=== PATIENT | male | born 1985 | race Caucasian/White ===

== ENCOUNTER 2018-04-23 08:51 | Observation (INO) ==
[2018-04-23] MEDS ORDERED: Sod Chloride 0.9% Inj 1,000 ML IV.SIG SCH (09:30)
--- NOTE | 2018-04-23 09:33 | ED ---
HPI General Chief Complaint: Altered Mental Status Stated Complaint: AMS Time Seen by Provider: 04/23/18 09:19 Source: patient, family and EMS Mode of arrival: EMS Limitations: altered mental status History of Present Illness HPI narrative: 33-year-old male was brought in by EMS after patient was found with altered mental status morning. Patient's family found patient confused and severe lethargy this morning. Patient was talking without making any sense. Patient was asking for help. EMS was called. Patient's blood sugar was found to be 46. Patient was given D10 IV. Patient was transported to ED for evaluation. Upon arrival patient is with mild lethargy however answer questions appropriately. Patient complained of mild headache. Patient complaint left-sided chest pain. Patient complains of nausea. Patient denies any palpitation. Patient denies history CAD. Patient states that he drank small amounts of alcohol recently. Patient denies any drug abuse. Patient has history hypertension and tachycardia. Patient on propanolol for that. Patient denies history of diabetes. Patient has history of hyperlipidemia. Patient is a non-smoker. Patient denies family history of heart disease. Patient also has history of depression. complaint: Reports altered mental status, confusion and decreased responsiveness Onset (ago): hour(s) Timing confirmed by: family member Severity: severe Consistency of symptoms: constant Context: Reports unknown Associated symptoms: Reports chest pain, headaches, malaise and nausea/vomiting Treatments prior to arrival: Reports glucose Related Data Home Medications Medication Instructions Recorded Confirmed pantoprazole 40 mg PO DAILY 04/23/18 04/23/18 propranolol 60 mg PO BID 04/23/18 04/23/18 sertraline 50 mg PO DAILY 04/23/18 04/23/18 Allergies Allergy/AdvReac Type Severity Reaction Status Date / Time No Known Allergies Allergy Verified 04/23/18 08:59 Review of Systems ROS: all other systems reviewed are negative [facility] Medical History Medical History ACL tear (Acute) Anxiety (Acute) HTN (hypertension) (Acute) Tachycardia (Acute) Surgical History Surgical History H/O hand surgery (Acute) Social History Social History Substance History: No History of Abuse Second Hand Smoke Exposure: No Smoking Status: Never smoker How Often Do You Have a Drink Containing Alcohol: 4 or more times a week Recent Travel in [facility] within the Last 8 Weeks: Yes Recent Out of Country Travel within the Last 8 Weeks: No Immunization History Tetanus Immunization: Unsure Exam Narrative Exam Narrative: GENERAL: Well-nourished, well-developed patient. SKIN: Focused skin assessment warm/dry. HEAD: Normocephalic. EYES: No scleral icterus. No injection or drainage. NECK: Supple, trachea midline. No JVD or lymphadenopathy. CARDIOVASCULAR: Regular rate and rhythm without murmurs, gallops, or rubs. RESPIRATORY: Breath sounds equal bilaterally. No accessory muscle use. GASTROINTESTINAL: Abdomen soft, non-tender, nondistended. MUSCULOSKELETAL: No cyanosis, or edema. BACK: Nontender without obvious deformity. No CVA tenderness. Neurologic exam: Patient is a lethargic. Patient oriented to place and person. Patient answer questions appropriately. Patient moves all extremities well. No obvious focal neurological deficit. Course Initial Documented Vital Signs Temperature 93.1 F L 04/23/18 09:01 Pulse Rate 50 L 04/23/18 09:01 Respiratory Rate 13 04/23/18 09:01 Blood Pressure 133/88 04/23/18 09:01 Pulse Oximetry 100 04/23/18 09:01 Last Documented Vital Signs Temperature 97.6 F 04/23/18 11:18 Pulse Rate 79 04/23/18 17:03 Respiratory Rate 17 04/23/18 17:03 Blood Pressure 117/89 04/23/18 17:03 Pulse Oximetry 100 04/23/18 17:03 Medical Decision Making [facility] Narrative Medical decision making narrative: 33-year-old male was found with altered mental status and confused this morning. Blood sugar was 46. Patient was given D10 and transported to ED by EMS. Patient's mental status improves in the ED. Patient complained of left-sided chest pain now. Normal saline solution 1 L IV bolus. Medical Screen Exam Complete: Yes Emergency Medical Condition: Yes Differential Diagnosis Differential Diagnosis: Differential diagnosis including hypoglycemia, chest wall pain, angina, NM, PE, pneumothorax, TIA, CVA. Lab Data Lab results reviewed: Yes I reviewed the patient's lab results. Result diagrams: 04/23/18 09:25 04/23/18 09:25 Lab Results 0204/23/18 04/23/18 Range/Units 09:25 09:25 09:25 WBC 5.1 (4.0-11.0) th/mm3 RBC 4.15 L (4.50-5.90) mil/mm3 Hgb 14.0 (13.0-17.0) gm/dL Hct 41.0 (39.0-51.0) % MCV 98.8 (80.0-100.0) fL MCH 33.8 (27.0-34.0) pg MCHC 34.2 (32.0-36.0) % RDW 13.7 (11.6-17.2) % Plt Count 208 (150-450) th/mm3 MPV 7.9 (7.0-11.0) fL Neut % (Auto) 73.7 H (16.0-70.0) % Lymph % (Auto) 16.6 (9.0-44.0) % [place] % (Auto) 6.0 (0.0-8.0) % Eos % (Auto) 1.4 (0.0-4.0) % Baso % (Auto) 2.3 H (0.0-2.0) % Neut # (Auto) 3.7 (1.8-7.7) th/mm3 Lymph # (Auto) 0.8 L (1.0-4.8) th/mm3 [place] # (Auto) 0.3 (0.0-0.9) th/mm3 Eos # (Auto) 0.1 (0.0-0.4) th/mm3 Baso # (Auto) 0.1 (0.0-0.2) th/mm3 WBC Differential . Differential Comment Auto diff final PT 10.5 (9.8-11.6) sec INR 1.0 Ratio APTT 26.1 (23.4-31.7) sec Sodium 132 L (136-145) meq/L Potassium 3.5 (3.5-5.1) meq/L Chloride 96 L (98-107) meq/L Carbon Dioxide 17.0 L (21.0-32.0) meq/L Anion Gap 19 H (5-15) meq/L BUN 9 (7-18) mg/dL Creatinine 1.02 (0.60-1.30) mg/dL Estimated GFR 85 L (>89) mL/min Random Glucose 178 H (74-106) mg/dL Lactic Acid (0.4-2.0) mmol/L Calcium 8.3 L (8.5-10.1) mg/dL Total Bilirubin 1.4 H (0.2-1.0) mg/dL AST 627 H (15-37) U/L ALT 144 H (12-78) U/L Alkaline Phosphatase 122 H (45-117) U/L Total Creatine Kinase 202 (39-308) U/L Troponin I Less than 0.02 L (0.02-0.05) ng/mL Total Protein 8.3 H (6.4-8.2) g/dL Albumin 4.3 (3.4-5.0) g/dL TSH 1.390 (0.358-3.740) uIU/mL Urine Color (Yellw/Straw) Urine Clarity (Clear) Urine pH (5.0-8.5) Ur Specific [place] (1.002-1.035) Urine Protein (Neg-Trace) mg/dL Urine Glucose (UA) (Negative) mg/dL Urine Ketones (Negative) mg/dL Urine Occult Blood (Negative) Urine Nitrate (Negative) Urine Bilirubin (Negative) Urine Urobilinogen (Less than 2) mg/dL Ur Leukocyte Esterase (Negative) Urine RBC (0-3) /hpf Hyaline Casts (0-3) /lpf Urine Mucus (Occasional) /lpf Micro UA Comment Ur Microscopic Review Urine Culture Comments Urine Opiates Screen (Neg) Ur Barbiturates Screen (Neg) Ur Amphetamines Screen (Neg) U Benzodiazepines Scrn (Neg) Urine Cocaine Screen (Neg) U Cannabinoids Screen (Neg) 04/23/18 04/23/18 04/23/18 Range/Units 10:22 11:02 11:02 WBC (4.0-11.0) th/mm3 RBC (4.50-5.90) mil/mm3 Hgb (13.0-17.0) gm/dL Hct (39.0-51.0) % MCV (80.0-100.0) fL MCH (27.0-34.0) pg MCHC (32.0-36.0) % RDW (11.6-17.2) % Plt Count (150-450) th/mm3 MPV (7.0-11.0) fL Neut % (Auto) (16.0-70.0) % Lymph % (Auto) (9.0-44.0) % [place] % (Auto) (0.0-8.0) % Eos % (Auto) (0.0-4.0) % Baso % (Auto) (0.0-2.0) % Neut # (Auto) (1.8-7.7) th/mm3 Lymph # (Auto) (1.0-4.8) th/mm3 [place] # (Auto) (0.0-0.9) th/mm3 Eos # (Auto) (0.0-0.4) th/mm3 Baso # (Auto) (0.0-0.2) th/mm3 WBC Differential Differential Comment PT (9.8-11.6) sec INR Ratio APTT (23.4-31.7) sec Sodium (136-145) meq/L Potassium (3.5-5.1) meq/L Chloride (98-107) meq/L Carbon Dioxide (21.0-32.0) meq/L Anion Gap (5-15) meq/L BUN (7-18) mg/dL Creatinine (0.60-1.30) mg/dL Estimated GFR (>89) mL/min Random Glucose (74-106) mg/dL Lactic Acid 4.2 H* (0.4-2.0) mmol/L Calcium (8.5-10.1) mg/dL Total Bilirubin (0.2-1.0) mg/dL AST (15-37) U/L ALT (12-78) U/L Alkaline Phosphatase (45-117) U/L Total Creatine Kinase (39-308) U/L Troponin I (0.02-0.05) ng/mL Total Protein (6.4-8.2) g/dL Albumin (3.4-5.0) g/dL TSH (0.358-3.740) uIU/mL Urine Color Straw (Yellw/Straw) Urine Clarity Clear (Clear) Urine pH 6.0 (5.0-8.5) Ur Specific [place] 1.006 (1.002-1.035) Urine Protein Negative (Neg-Trace) mg/dL Urine Glucose (UA) 150 H (Negative) mg/dL Urine Ketones 20 (Negative) mg/dL Urine Occult Blood Negative (Negative) Urine Nitrate Negative (Negative) Urine Bilirubin Negative (Negative) Urine Urobilinogen Less than 2 (Less than 2) mg/dL Ur Leukocyte Esterase Negative (Negative) Urine RBC Less than 1 (0-3) /hpf Hyaline Casts 3 (0-3) /lpf Urine Mucus Few H (Occasional) /lpf Micro UA Comment Culture not ind Ur Microscopic Review Not Reportable Urine Culture Comments Culture not ind Urine Opiates Screen Neg (Neg) Ur Barbiturates Screen Neg (Neg) Ur Amphetamines Screen Neg (Neg) U Benzodiazepines Scrn Neg (Neg) Urine Cocaine Screen Neg (Neg) U Cannabinoids Screen Neg (Neg) Imaging Data Attestation: I personally reviewed and interpreted this imaging study as follows : Radiologist's impression: Chest X-Ray 04/23/18 09:20 CONCLUSION: No acute cardiopulmonary disease Head CT 04/23/18 09:20 CONCLUSION: 1. No acute intracranial abnormality . . Discharge Plan Discharge Disposition Patient Disposition: ED Admit(ED Internal Use Only) Discharge Order Discharge Orders: ED Use Only Admit Order (Routine); Ordered 04/23/18 Ordered By: Diomedes De Souza Discharge Details Diagnosis: Hypoglycemia, Left-sided chest pain, Hypothermia Physicians Team ED Provider: Diomedes De Souza Primary Care Provider: Primary Care Lindsey Motta Attending Provider: Renard Paris Discharge Interventions Interventions: Vital Signs Last Done: 04/23/18 13:17 ED Discharge Assessment Last Done: 04/23/18 17:09 Status ED Status: Admitted Observation Patient
--- NOTE | 2018-04-23 09:40 | XR ---
EXAM DATE: 04/23/2018 9:34 AM EST AGE/SEX: 33 years / Male INDICATIONS: Chest pain. CLINICAL DATA: This is the patient's initial encounter. Patient reports that signs and symptoms have been present for 1 day and indicates a pain score of 6/10. MEDICAL/SURGICAL HISTORY: None. None. COMPARISON: No prior exams available for comparison. FINDINGS: A single AP view of the chest demonstrates the lungs to be symmetrically aerated without evidence of mass, infiltrate or effusion. The cardiomediastinal contours are unremarkable. Osseous structures a re intact. CONCLUSION: No acute cardiopulmonary disease Electronically signed by: Jonathon Steiner MD Board Certified Radiologist 04/23/2018 9:38 AM EST
[2018-04-23 09:47] LABS: Baso # (Auto) 0.1 th/mm3 (0.0-0.2); Baso % (Auto) 2.3 % (0.0-2.0); Eos # (Auto) 0.1 th/mm3 (0.0-0.4); Eos % (Auto) 1.4 % (0.0-4.0); Lymph # (Auto) 0.8 th/mm3 (1.0-4.8); Lymph % (Auto) 16.6 % (9.0-44.0); Mean Corpuscular HGB Conc 34.2 % (32.0-36.0); Mean Corpuscular Hemoglobin 33.8 pg (27.0-34.0); Mean Corpuscular Volume 98.8 fL (80.0-100.0); Mean Platelet Volume 7.9 fL (7.0-11.0); Mono # (Auto) 0.3 th/mm3 (0.0-0.9); Neut # (Auto) 3.7 th/mm3 (1.8-7.7); Neut % (Auto) 73.7 % (16.0-70.0); Platelet Count 208 th/mm3 (150-450); Red Blood Count 4.15 mil/mm3 (4.50-5.90); Red Cell Distribution Width 13.7 % (11.6-17.2); White Blood Count 5.1 th/mm3 (4.0-11.0)
[2018-04-23 09:53] LABS: Activated Partial Thrombo Time 26.1 sec (23.4-31.7); Prothrombin Time 10.5 sec (9.8-11.6)
[2018-04-23 10:06] LABS: Albumin 4.3 g/dL (3.4-5.0); Anion Gap 19 meq/L (5-15); Aspartate Aminotransferase 627 U/L (15-37); Blood Urea Nitrogen 9 mg/dL (7-18); Calcium 8.3 mg/dL (8.5-10.1); Chloride 96 meq/L (98-107); Glomerular Filtration Rate 85 mL/min (>89); Glucose,Random 178 mg/dL (74-106); Potassium 3.5 meq/L (3.5-5.1); Sodium 132 meq/L (136-145)
[2018-04-23 10:07] LABS: Alanine Aminotransferase 144 U/L (12-78)
[2018-04-23 10:16] LABS: Alkaline Phosphatase 122 U/L (45-117); Creatine Kinase 202 U/L (39-308); Total Protein 8.3 g/dL (6.4-8.2)
--- NOTE | 2018-04-23 10:23 | CT ---
EXAM DATE: 04/23/2018 10:20 AM EST AGE/SEX: 33 years / Male INDICATIONS: Altered Mental Status CLINICAL DATA: This is the patient's initial encounter. Patient reports that signs and symptoms have been present for 1 day and indicates a pain score of 0/10. MEDICAL/SURGICAL HISTORY: Diabetes. Hypertension. None. RADIATION DOSE: 66.34 CTDI (mGy) COMPARISON: No prior exams available for comparison. TECHNIQUE: CT of the head without contrast. Using automated exposure control and adjustment of the mA and/or kV according to patient size, radiation dose was kept as low as reasonably achievable to ob tain optimal diagnostic quality images. DICOM format image data is available electronically for revi ew and comparison. FINDINGS: Cerebrum: The ventricles are normal for age. No evidence of midline shift, mass lesion, hemorrhage or acute infarction. No extraaxial fluid collections are seen. Posterior Fossa: The cerebellum and brainstem are intact. The 4th ventricle is midline. The cerebe llopontine angle is unremarkable. Extracranial: The visualized portion of the orbits is intact. Skull: The calvaria is intact. No evidence of skull fracture. CONCLUSION: 1. No acute intracranial abnormality . . Electronically signed by: Jonathon Steiner MD Board Certified Radiologist 04/23/2018 10:21 AM EST
[2018-04-23 11:16] LABS: Bilirubin,Urine Negative (Negative); Clarity,Urine Clear (Clear); Color,Urine Straw (Yellw/Straw); Glucose,Urine (UA) 150 mg/dL (Negative); Hyaline Casts,Urine 3 /lpf (0-3); Leukocyte Esterase,Urine Negative (Negative); Mucus,Urine Few /lpf (Occasional); Nitrite,Urine Negative (Negative); Specific Gravity,Urine 1.006 (1.002-1.035)
[2018-04-23 11:20] LABS: Amphetamine Screen,Urine Neg (Neg); Barbiturate Screen,Urine Neg (Neg); Cannabinoid Screen,Urine Neg (Neg); Cocaine Screen,Urine Neg (Neg)
[2018-04-23] MEDS ORDERED: Dextrose 5%/NaCl 0.45% Inj 1,000 ML IV.CONT SCH (11:30)
[2018-04-23 11:33] LABS: Opiate Screen,Urine Neg (Neg)
--- NOTE | 2018-04-23 15:43 | P.HPFP ---
History of Present Illness Primary Care Physician: No Primary Care Physician <AnsonkeonRenard K - 04/23/18 19:47> No Primary Care Physician <Aguila Darleen Villar Lexie - 04/23/18 15:43> Chief Complaint: AMS secondary to hypoglycemia, left-sided CP <Darleen Roberto - 04/23/18 19:13> History of Present Illness: 33-year-old male with history of tachycardia for which he takes propranolol, presented to the ED via EMS for altered mental status due to hypoglycemia down to the 40s. Patient was given D50 in route to the ED. Patient was found to be hypothermic and bradycardic on arrival to the ED with a lactic acidosis of 4.2. Patient states that this morning after urinating he felt like he was "going to pass out", with significant palpitations, sweating episode and jitteriness. Patient states that he started getting tunnel vision, and that when he called his boss his mom. Per patient she likely showed up within 5 minutes of him losing consciousness and contacted EMS. Patient remembers waking up in the ambulance on his way to the hospital but is otherwise unsure of what occurred. He states the last time he ate last night was around 10 PM. No history of hypoglycemic episodes in the past. No recent change in medications, and takes propranolol as prescribed. Patient complaining of nausea, and admits to vomiting once in the ED, nonbloody emesis and a single episode of watery diarrhea. He notes general malaise and body aches currently. He also complained of dull, aching, nonradiating left- sided chest pain in the ED which has now started to resolve. No recent upper respiratory infections or notable sick contacts. Denies headache, change in vision, nasal congestion, sinus pain, sore throat, abdominal pain, pain in his legs. Patient admits to a history of travel including a cruise to the [facility], and a road trip from [place] to [place] within the last 2 months. He notes that he was diagnosed with elevated LFTs at an outpatient clinic in [place], [place] in the last month or so, for which he underwent a workup including an EGD, colonoscopy and ultrasound of the liver. Patient was noted to have fatty liver disease due to alcoholism and a "bacterial or fungal infection" though he is unable to indicate if this was found in the stomach, small bowel, colon or liver. 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 Past medical history: Tachycardia, for which he takes propranolol. GERD, for which he takes pantoprazole. Depression, for which he takes sertraline. Family history: No history of arrhythmias or sudden cardiac at a young age. History of CAD and high cholesterol in both maternal and paternal sides. Social history: Works at the [employer] Former smoker of approximately 1 pack/week for 3 years. History of using chewing tobacco for approximately 5 years. He now occasionally uses an e- cigarette. EtOH: Drinks 2 to 3 12-16 ounce glasses of hard liquor daily, which he notes is a decrease from prior ingestion of a 6 pack of beer and 3-4 shots of hard liquor daily. Denies substance abuse. <Aguila VillarDarleen B 04/23/18 20:11> - Diagnosis (1) Nausea, vomiting, and diarrhea (2) Elevated LFTs (3) Prolonged Q-T interval on ECG (4) Left-sided chest pain (5) Altered mental status (6) Hypothermia (7) Hypotension (8) History of tachycardia (9) Nutrition, metabolism, and development symptoms (10) DVT prophylaxis <Renard Paris 04/23/18 19:47> (1) Nausea, vomiting, and diarrhea (2) Elevated LFTs (3) Prolonged Q-T interval on ECG (4) Left-sided chest pain (5) Altered mental status (6) Hypothermia (7) Hypotension (8) History of tachycardia (9) Nutrition, metabolism, and development symptoms (10) DVT prophylaxis <Aguila VillarDarleen B 04/23/18 20:11> PMFSH - History History Provided By: Patient <Kristinviolet VillarDarleen B 04/23/18 15:43> - Medical History Medical History: Medical History (Last Reviewed 04/23/18 @ 15:21 by Renard Paris MD) ACL tear Anxiety HTN (hypertension) Tachycardia <Renard Paris 04/23/18 19:56> Medical History (Last Reviewed 04/23/18 @ 15:21 by Renard Paris MD) ACL tear Anxiety HTN (hypertension) Tachycardia <Darleen Roberto 04/23/18 15:43> - Surgical History Surgical History: Surgical History (Last Reviewed 04/23/18 @ 15:21 by Renard Paris MD) H/O hand surgery <Renard Paris 04/23/18 19:56> Surgical History (Last Reviewed 04/23/18 @ 15:21 by Renard Paris MD) H/O hand surgery <Darleen Roberto 04/23/18 15:43> - Tobacco History Second Hand Smoke Exposure: No <Darleen Roberto 04/23/18 15:43> Smoking Status: Never smoker <Darleen Roberto 04/23/18 15:43> - Alcohol History How Often Do You Have a Drink Containing Alcohol: 4 or more times a week < Darleen Roberto 04/23/18 15:43> - Substance Use History Substance History: No History of Abuse <Darleen Roberto 04/23/18 15:43> - Travel History Recent Travel in the [facility] Within the Last 8 Weeks: Yes <Darleen Roberto 15:43> Recent Travel Out of the Country Within the Last 8 Weeks: No <Darleen Roberto 04/23/18 15:43> - Immunization History Tetanus Immunization: Unsure <Darleen Roberto 04/23/18 15:43> Medications and Allergies Allergies Allergy/AdvReac Type Severity Reaction Status Date / Time No Known Allergies Allergy Verified 04/23/18 08:59 <Darleen Roberto 04/23/18 15:43> Home Medications Medication Instructions Recorded Confirmed Type pantoprazole 40 mg PO DAILY 04/23/18 04/23/18 History propranolol 60 mg PO BID 04/23/18 04/23/18 History sertraline 50 mg PO DAILY 04/23/18 04/23/18 History <Darleen Roberto 04/23/18 15:43> Active Medications: Active Medications Dextrose (D50w Vial) 50 ml IV.PUSH UNSCH PRN PRN Reason: PER HYPOGLYCEMIA PROTOCOL Flumazenil (Romazicon Inj) 0.2 mg IV.PUSH Q1M PRN PRN Reason: OVERSEDATION Glucagon (Glucagon Inj) 1 mg OTHER PRN PRN PRN Reason: for Hypoglycemia Protocol Haloperidol Lactate (Haldol Inj) 1 mg IV.PUSH Q15M PRN PRN Reason: for severe agitation Sodium Chloride (Ns Inj) 1,000 mls @ 115 mls/hr IV.CONT .Q8H42M [facility] Last Admin: 04/23/18 18:05 Dose: 115 mls/hr Lorazepam (Ativan) 1 mg PO Q4H PRN PRN Reason: for CIWA 8-10 Lorazepam (Ativan) 2 mg PO Q2H PRN PRN Reason: for CIWA 11-14 Lorazepam (Ativan Inj) 2 mg IV.PUSH Q2H PRN PRN Reason: for CIWA 11-14 Lorazepam (Ativan Inj) 2 mg IV.PUSH Q1H PRN PRN Reason: for CIWA 15-20 Lorazepam (Ativan Inj) 2 mg IV.PUSH Q15M PRN PRN Reason: for CIWA > 20 Lorazepam (Ativan Inj) 1 mg IV.PUSH Q4H PRN PRN Reason: for CIWA 8-10 Pantoprazole Sodium (Protonix) 40 mg PO DAILY [facility] Last Admin: 04/23/18 18:05 Dose: 40 mg Promethazine HCl (Phenergan) 12.5 mg PO Q6H PRN PRN Reason: nausea and vomiting Senna/Docusate Sodium (Jackie-Colace) 1 tab PO BID PRN PRN Reason: CONSTIPATION Sertraline HCl (Zoloft) 50 mg PO DAILY [facility] Sodium Chloride (Ns Flush) 2 ml IV.FLUSH BID [facility] Sodium Chloride (Ns Flush) 2 ml IV.FLUSH PRN PRN PRN Reason: FLUSH AFTER USING IV ACCESS <Renard Paris - 04/23/18 19:47> Active Medications Dextrose/Sodium Chloride (D5w/1/2 Ns Inj) 1,000 mls @ 125 mls/hr IV.CONT .Q8H [facility] Last Admin: 04/23/18 11:24 Dose: 125 mls/hr <Darleen Roberto - 04/23/18 15:43> Exam Vital signs: Vital Signs 04/23/18 09:01 04/23/18 09:39 04/23/18 10:19 Temperature 93.1 F L 94.9 F L 94.6 F L Pulse Rate 50 L Respiratory Rate 13 Blood Pressure 133/88 Pulse Oximetry 100 04/23/18 11:18 04/23/18 13:17 04/23/18 17:03 Temperature 97.6 F Pulse Rate 76 81 79 Respiratory Rate 17 17 17 Blood Pressure 93/54 L 96/58 L 117/89 Pulse Oximetry 99 99 100 04/23/18 17:21 04/23/18 17:23 04/23/18 19:19 Temperature 98.1 F Pulse Rate 82 Respiratory Rate 20 Blood Pressure 141/86 H Pulse Oximetry 99 100 98 04/23/18 19:39 Temperature 97.1 F L Pulse Rate 74 Respiratory Rate 16 Blood Pressure 140/91 H Pulse Oximetry 100 Intake & Output 04/23/18 04/23/18 04/24/18 06:59 18:59 06:59 Intake Total 1700 / 1700 Balance 1700 / 1700 Weight 72.575 kg Intake: IV 1700 / 1700 D5W/1/2 NS Inj 1,000 ML @ 125 700 / 700 mls/hr IV.CONT .Q8H DIXIE Rx#: [id number] NS Inj 1,000 ML @ 1000 mls/hr 1000 / 1000 IV.SIG BOLUS DIXIE Rx#:[id number] Other: # Voids 1 Weight On Admission 72.575 kg <Renard Paris - 04/23/18 19:47> Vital Signs 04/23/18 09:01 04/23/18 09:39 04/23/18 10:19 Temperature 93.1 F L 94.9 F L 94.6 F L Pulse Rate 50 L Respiratory Rate 13 Blood Pressure 133/88 Pulse Oximetry 100 04/23/18 11:18 04/23/18 13:17 Temperature 97.6 F Pulse Rate 76 81 Respiratory Rate 17 17 Blood Pressure 93/54 L 96/58 L Pulse Oximetry 99 99 Intake & Output 04/22/18 04/23/18 04/23/18 18:59 06:59 18:59 Intake Total 1000 / 1000 Balance 1000 / 1000 Weight 72.575 kg Intake: IV 1000 / 1000 NS Inj 1,000 ML @ 1000 mls/hr 1000 / 1000 IV.SIG BOLUS DIXIE Rx#:[id number] <Darleen Roberto - 04/23/18 15:43> Narrative: GENERAL: 33-year-old, well nourished, well developed M laying down in bed. Tired appearing. In no acute distress. SKIN: Warm and dry. HEAD: Atraumatic. Normocephalic. EYES: EMOI. PERRLA. No scleral icterus. No injection or drainage. ENT: No nasal bleeding or discharge. Mucous membranes pink and moist. Airway patent. CARDIOVASCULAR: Bradycardic, with regular rhythm. No murmur. PT and DP pulses 2 + bilaterally. RESPIRATORY: No accessory muscle use. Clear to auscultation with equal breath sounds. No crackles, wheeze, rales or rhonchi. GASTROINTESTINAL: BS in all 4 quadrants. Abdomen soft, non-tender, nondistended. Hepatic and splenic margins not palpable. MUSCULOSKELETAL: Extremities without clubbing, cyanosis, or edema. No obvious deformities. No calf tenderness. No CVA tenderness. NEUROLOGICAL: Awake and alert. No obvious cranial nerve deficits. Motor grossly within normal limits. Five out of 5 muscle strength in the arms and legs. Normal speech. <Darleen Roberto [facility] 04/23/18 20:11> Results - Labs Result diagrams: 04/23/18 09:25 04/23/18 09:25 <[place] [id number] 04/23/18 15:43> Abnormal lab results 04/23/18 04/23/18 04/23/18 Range/Units 09:25 09:25 10:22 RBC 4.15 L (4.50-5.90) mil/mm3 Neut % (Auto) 73.7 H (16.0-70.0) % Baso % (Auto) 2.3 H (0.0-2.0) % Lymph # (Auto) 0.8 L (1.0-4.8) th/mm3 Sodium 132 L (136-145) meq/L Chloride 96 L (98-107) meq/L Carbon Dioxide 17.0 L (21.0-32.0) meq/L Anion Gap 19 H (5-15) meq/L Estimated GFR 85 L (>89) mL/min Random Glucose 178 H (74-106) mg/dL Lactic Acid 4.2 H* (0.4-2.0) mmol/L Calcium 8.3 L (8.5-10.1) mg/dL Total Bilirubin 1.4 H (0.2-1.0) mg/dL AST 627 H (15-37) U/L ALT 144 H (12-78) U/L Alkaline Phosphatase 122 H (45-117) U/L Troponin I Less than 0.02 L (0.02-0.05) ng/mL Total Protein 8.3 H (6.4-8.2) g/dL Urine Glucose (UA) (Negative) mg/dL Urine Mucus (Occasional) /lpf 04/23/18 04/23/18 Range/Units 11:02 16:55 RBC (4.50-5.90) mil/mm3 Neut % (Auto) (16.0-70.0) % Baso % (Auto) (0.0-2.0) % Lymph # (Auto) (1.0-4.8) th/mm3 Sodium (136-145) meq/L Chloride (98-107) meq/L Carbon Dioxide (21.0-32.0) meq/L Anion Gap (5-15) meq/L Estimated GFR (>89) mL/min Random Glucose (74-106) mg/dL Lactic Acid (0.4-2.0) mmol/L Calcium (8.5-10.1) mg/dL Total Bilirubin (0.2-1.0) mg/dL AST (15-37) U/L ALT (12-78) U/L Alkaline Phosphatase (45-117) U/L Troponin I Less than 0.02 L (0.02-0.05) ng/mL Total Protein (6.4-8.2) g/dL Urine Glucose (UA) 150 H (Negative) mg/dL Urine Mucus Few H (Occasional) /lpf Short CBC 04/23/18 Range/Units 09:25 WBC 5.1 (4.0-11.0) th/mm3 Hgb 14.0 (13.0-17.0) gm/dL Hct 41.0 (39.0-51.0) % Plt Count 208 (150-450) th/mm3 [facility] 04/23/18 09:25 Sodium 132 L Potassium 3.5 Chloride 96 L Carbon Dioxide 17.0 L BUN 9 Creatinine 1.02 Calcium 8.3 L Cardiac Enzymes 04/23/18 04/23/18 Range/Units 09:25 16:55 Total Creatine Kinase 202 164 (39-308) U/L Troponin I Less than 0.02 L Less than 0.02 L (0.02-0.05) ng/mL Liver Function 04/23/18 Range/Units 09:25 Total Bilirubin 1.4 H (0.2-1.0) mg/dL AST 627 H (15-37) U/L ALT 144 H (12-78) U/L Alkaline Phosphatase 122 H (45-117) U/L Albumin 4.3 (3.4-5.0) g/dL Urine 04/23/18 Range/Units 11:02 Urine Color Straw (Yellw/Straw) Urine Clarity Clear (Clear) Urine pH 6.0 (5.0-8.5) Ur Specific [place] 1.006 (1.002-1.035) Urine Protein Negative (Neg-Trace) mg/dL Urine Glucose (UA) 150 H (Negative) mg/dL <Renard Paris - 04/23/18 19:47> Abnormal lab results 04/23/18 04/23/18 04/23/18 Range/Units 09:25 09:25 10:22 RBC 4.15 L (4.50-5.90) mil/mm3 Neut % (Auto) 73.7 H (16.0-70.0) % Baso % (Auto) 2.3 H (0.0-2.0) % Lymph # (Auto) 0.8 L (1.0-4.8) th/mm3 Sodium 132 L (136-145) meq/L Chloride 96 L (98-107) meq/L Carbon Dioxide 17.0 L (21.0-32.0) meq/L Anion Gap 19 H (5-15) meq/L Estimated GFR 85 L (>89) mL/min Random Glucose 178 H (74-106) mg/dL Lactic Acid 4.2 H* (0.4-2.0) mmol/L Calcium 8.3 L (8.5-10.1) mg/dL Total Bilirubin 1.4 H (0.2-1.0) mg/dL AST 627 H (15-37) U/L ALT 144 H (12-78) U/L Alkaline Phosphatase 122 H (45-117) U/L Troponin I Less than 0.02 L (0.02-0.05) ng/mL Total Protein 8.3 H (6.4-8.2) g/dL Urine Glucose (UA) (Negative) mg/dL Urine Mucus (Occasional) /lpf 04/23/18 Range/Units 11:02 RBC (4.50-5.90) mil/mm3 Neut % (Auto) (16.0-70.0) % Baso % (Auto) (0.0-2.0) % Lymph # (Auto) (1.0-4.8) th/mm3 Sodium (136-145) meq/L Chloride (98-107) meq/L Carbon Dioxide (21.0-32.0) meq/L Anion Gap (5-15) meq/L Estimated GFR (>89) mL/min Random Glucose (74-106) mg/dL Lactic Acid (0.4-2.0) mmol/L Calcium (8.5-10.1) mg/dL Total Bilirubin (0.2-1.0) mg/dL AST (15-37) U/L ALT (12-78) U/L Alkaline Phosphatase (45-117) U/L Troponin I (0.02-0.05) ng/mL Total Protein (6.4-8.2) g/dL Urine Glucose (UA) 150 H (Negative) mg/dL Urine Mucus Few H (Occasional) /lpf Short CBC 04/23/18 Range/Units 09:25 WBC 5.1 (4.0-11.0) th/mm3 Hgb 14.0 (13.0-17.0) gm/dL Hct 41.0 (39.0-51.0) % Plt Count 208 (150-450) th/mm3 [facility] 04/23/18 09:25 Sodium 132 L Potassium 3.5 Chloride 96 L Carbon Dioxide 17.0 L BUN 9 Creatinine 1.02 Calcium 8.3 L Cardiac Enzymes 04/23/18 Range/Units 09:25 Total Creatine Kinase 202 (39-308) U/L Troponin I Less than 0.02 L (0.02-0.05) ng/mL Liver Function 04/23/18 Range/Units 09:25 Total Bilirubin 1.4 H (0.2-1.0) mg/dL AST 627 H (15-37) U/L ALT 144 H (12-78) U/L Alkaline Phosphatase 122 H (45-117) U/L Albumin 4.3 (3.4-5.0) g/dL Urine 04/23/18 Range/Units 11:02 Urine Color Straw (Yellw/Straw) Urine Clarity Clear (Clear) Urine pH 6.0 (5.0-8.5) Ur Specific [place] 1.006 (1.002-1.035) Urine Protein Negative (Neg-Trace) mg/dL Urine Glucose (UA) 150 H (Negative) mg/dL <Darleen Roberto 04/23/18 15:43> - Imaging Impressions Chest X-Ray 04/23/18 09:20 CONCLUSION: No acute cardiopulmonary disease Head CT 04/23/18 09:20 CONCLUSION: 1. No acute intracranial abnormality . . <Renard Paris 04/23/18 19:47> Impressions Chest X-Ray 04/23/18 09:20 CONCLUSION: No acute cardiopulmonary disease Head CT 04/23/18 09:20 CONCLUSION: 1. No acute intracranial abnormality . . <Darleen Roberto 04/23/18 15:43> Caprini VTE Risk Assessment Caprini VTE Risk Assessment: No/Low Risk (score <= 1) <Darleen Roberto 20:11> Caprini Risk Assessment Model: Point Value = 1 Point Value = 2 Point Value = 3 Point Value = 5 Age 41-60 Minor surgery BMI > 25 kg/m2 Swollen legs Varicose veins or History of unexplained or recurrent spontaneous Oral contraceptives or hormone replacement Sepsis (< 1 month) Serious lung disease, including pneumonia (< 1 month) Abnormal pulmonary function Acute myocardial infarction Congestive heart failure (< 1 month) History of inflammatory bowel disease Medical patient at bed rest Age 61-74 Arthroscopic surgery Major open surgery (> 45 min) Laparoscopic surgery (> 45 min) Malignancy Confined to bed (> 72 hours) Immobilizing plaster cast Central venous access Age >= 75 History of VTE Family history of VTE Factor V Leiden Prothrombin [id number] Lupus anticoagulant Anticardiolipin antibodies Elevated serum homocysteine Heparin-induced thrombocytopenia Other congenital or acquired thrombophilia Stroke (< 1 month) Elective arthroplasty Hip, pelvis, or leg fracture Acute spinal cord injury (< 1 month) <Renard Paris 04/23/18 19:47> Point Value = 1 Point Value = 2 Point Value = 3 Point Value = 5 Age 41-60 Minor surgery BMI > 25 kg/m2 Swollen legs Varicose veins or History of unexplained or recurrent spontaneous Oral contraceptives or hormone replacement Sepsis (< 1 month) Serious lung disease, including pneumonia (< 1 month) Abnormal pulmonary function Acute myocardial infarction Congestive heart failure (< 1 month) History of inflammatory bowel disease Medical patient at bed rest Age 61-74 Arthroscopic surgery Major open surgery (> 45 min) Laparoscopic surgery (> 45 min) Malignancy Confined to bed (> 72 hours) Immobilizing plaster cast Central venous access Age >= 75 History of VTE Family history of VTE Factor V Leiden Prothrombin [id number] Lupus anticoagulant Anticardiolipin antibodies Elevated serum homocysteine Heparin-induced thrombocytopenia Other congenital or acquired thrombophilia Stroke (< 1 month) Elective arthroplasty Hip, pelvis, or leg fracture Acute spinal cord injury (< 1 month) <Darleen Roberto - 04/23/18 15:43> Prophylaxis Regimen: Total Risk Factor Score Risk Level Prophylaxis Regimen 0-1 Low Early ambulation 2 Moderate Order ONE of the following: *Sequential Compression Device (SCD) *Heparin 5000 units SQ BID 3-4 Higher Order ONE of the following medications: *Heparin 5000 units SQ TID *Enoxaparin/Lovenox 40 mg SQ daily (WT < 150 kg, CrCl > 30 mL/min) *Enoxaparin/Lovenox 30 mg SQ daily (WT < 150 kg, CrCl > 10-29 mL/min) *Enoxaparin/Lovenox 30 mg SQ BID (WT < 150 kg, CrCl > 30 mL/min) AND/OR *Sequential Compression Device (SCD) 5 or more Highest Order ONE of the following medications: *Heparin 5000 units SQ TID (Preferred with Epidurals) *Enoxaparin/Lovenox 40 mg SQ daily (WT < 150 kg, CrCl > 30 mL/min) *Enoxaparin/Lovenox 30 mg SQ daily (WT < 150 kg, CrCl > 10-29 mL/min) *Enoxaparin/Lovenox 30 mg SQ BID (WT < 150 kg, CrCl > 30 mL/min) AND *Sequential Compression Device (SCD) <Renard Paris - 04/23/18 19:47> Total Risk Factor Score Risk Level Prophylaxis Regimen 0-1 Low Early ambulation 2 Moderate Order ONE of the following: *Sequential Compression Device (SCD) *Heparin 5000 units SQ BID 3-4 Higher Order ONE of the following medications: *Heparin 5000 units SQ TID *Enoxaparin/Lovenox 40 mg SQ daily (WT < 150 kg, CrCl > 30 mL/min) *Enoxaparin/Lovenox 30 mg SQ daily (WT < 150 kg, CrCl > 10-29 mL/min) *Enoxaparin/Lovenox 30 mg SQ BID (WT < 150 kg, CrCl > 30 mL/min) AND/OR *Sequential Compression Device (SCD) 5 or more Highest Order ONE of the following medications: *Heparin 5000 units SQ TID (Preferred with Epidurals) *Enoxaparin/Lovenox 40 mg SQ daily (WT < 150 kg, CrCl > 30 mL/min) *Enoxaparin/Lovenox 30 mg SQ daily (WT < 150 kg, CrCl > 10-29 mL/min) *Enoxaparin/Lovenox 30 mg SQ BID (WT < 150 kg, CrCl > 30 mL/min) AND *Sequential Compression Device (SCD) <Darleen Roberto - 04/23/18 15:43> Assessment and Plan - Assessment (1) Nausea, vomiting, and diarrhea Code(s): R11.2 - Nausea with vomiting, unspecified; R19.7 - Diarrhea, unspecified Status: Acute (2) Elevated LFTs Code(s): R94.5 - Abnormal results of liver function studies Status: Acute (3) Prolonged Q-T interval on ECG Code(s): R94.31 - Abnormal electrocardiogram [ECG] [EKG] Status: Acute (4) Left-sided chest pain Code(s): R07.9 - Chest pain, unspecified Status: Acute (5) Altered mental status Code(s): R41.82 - Altered mental status, unspecified Status: Resolved (6) Hypothermia Code(s): T68.XXXA - Hypothermia, initial encounter Status: Resolved (7) Hypotension Code(s): I95.9 - Hypotension, unspecified Status: Acute (8) History of tachycardia Code(s): Z87.898 - Personal history of other specified conditions Status: Resolved (9) Nutrition, metabolism, and development symptoms Code(s): R63.8 - Other symptoms and signs concerning food and fluid intake Status: Acute (10) DVT prophylaxis Status: Acute <Renard Paris - 04/23/18 19:47> (1) Nausea, vomiting, and diarrhea Code(s): R11.2 - Nausea with vomiting, unspecified; R19.7 - Diarrhea, unspecified Status: Acute (2) Elevated LFTs Code(s): R94.5 - Abnormal results of liver function studies Status: Acute (3) Prolonged Q-T interval on ECG Code(s): R94.31 - Abnormal electrocardiogram [ECG] [EKG] Status: Acute (4) Left-sided chest pain Code(s): R07.9 - Chest pain, unspecified Status: Acute (5) Altered mental status Code(s): R41.82 - Altered mental status, unspecified Status: Resolved (6) Hypothermia Code(s): T68.XXXA - Hypothermia, initial encounter Status: Resolved (7) Hypotension Code(s): I95.9 - Hypotension, unspecified Status: Acute (8) History of tachycardia Code(s): Z87.898 - Personal history of other specified conditions Status: Resolved (9) Nutrition, metabolism, and development symptoms Code(s): R63.8 - Other symptoms and signs concerning food and fluid intake Status: Acute (10) DVT prophylaxis Status: Acute <Darleen Roberto - 04/23/18 20:11> - Assessment and Plan SIRS, without source of infection Hypothermia and lactic acidosis on arrival to ED. -CXR showed no acute abnormality -S/p 1 L NS bolus and D5W 1/2 NS at maintenance in ED. -Repeat LA ordered -Blood cultures pending -Flu swab negative -Repeat CBC, BMP in AM AMS likely secondary to hypoglycemia, now resolved. BGL in the 40s on scene, given D50 by EMS. BGL in ED 178. -CT head showed no acute abnormality -UDS negative -Serum alcohol level -D5W 1/2 NS at maintenance in ED -Last BGL 130s in ED -Continue Accu-Cheks every shift -Hypoglycemia protocol ordered Elevated LFTs. History of fatty liver disease, workup at outpatient clinic in [place], [place]. -Hepatitis panel, Tylenol level, lipase ordered -Right upper quadrant ultrasound ordered -To request records from [facility] Nausea, vomiting, diarrhea Significant travel history in the past 2 months -Stool culture and Gram stain ordered -Phenergan 12.5 mg Left-sided CP ACS r/o initiated in ED. -Troponin I negative x1. Serial troponins ordered -Initial EKG in ED showed bradycardia of 52bpm with prolonged QTc 510ms. Serial EKG ordered Prolonged QT on EKG -Avoid QT prolonging medications -Based on cardiac telemetry due to prolonged QT and propranolol use for tachycardia. History of tachycardia, on propranolol 60 mg daily -Will hold home medications, due to current bradycardia History of significant alcohol use -Placed on CIWA protocol History of depression -Continue home sertraline FEN - Fluids: IVF NS @ 115 ml/hr - Monitor replace electrolytes as needed - Clear liquid diet PPX - Bilateral lower extremity SCDs - Protonix 40mgs daily for GI ppx dw Dr. Paris <Aguila Darleen Villar - 04/23/18 19:13> - Attending Attestation The exam, history, and the medical decision-making described in the above note were completed with the assistance of the resident physician. I reviewed and agree with the findings presented. I attest that I had a [id number] encounter with the patient on the same day, and personally performed and documented my assessment and findings in the medical record. Reviewed, discussed, and agree with Dr Sheehan's history as above. 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 no seafood. symptoms seem to be manifestation of hypoglycemia, tremors, nausea, and overall not feeling right. physical exam unremarkable. 1. Transaminitis: Known hx of EtOH overuse and NAFLD, but hard to completely attribute to this request records from last hospitalization [facility] US Hep Panel (recent GI upset) check lipase, tylenol level If initial work up negative and not improving will need to expand work up with travel to [place].. Discussed fungus? or bacteria? in stomach... 2. Hypoglycemia: PO intake seems adequate, may be 2/2 acute liver failure also on propanolol look into more rare cause of inappropriate endogenous insulin if persistent on accuchecks 3. Bradycardia tele, hold propanolol 4. QT prolongation Tele, avoid qt prolonging agents 5. lactic acidosis/HAGMA Trend with IVF resusc, no clear source besides some GI upset blood cx, stool studies pending 6. Hypothermia resolved now, monitor again concerning for OD or sepsis 7. hyponatremia monitor after IVF 8. HTN ok now, trend, hold propanolol 9. ZHENG hold propanolol may need add'l tx <AnsonkeonRenard Lorenzo - 04/23/18 19:56> <Darleen Roberto - Last Filed: 04/23/18 20:11> (6) Hypothermia Qualifiers: Encounter type: initial encounter Qualified Code(s): T68.XXXA - Hypothermia, initial encounter <Renard Paris - Last Filed: 04/23/18 19:47> (6) Hypothermia Qualifiers: Encounter type: initial encounter Qualified Code(s): T68.XXXA - Hypothermia, initial encounter <Darleen Roberto - Last Filed: 04/23/18 20:11> (6) Hypothermia Qualifiers: Encounter type: initial encounter Qualified Code(s): T68.XXXA - Hypothermia, initial encounter <Renard Paris - Last Filed: 04/23/18 19:47> (6) Hypothermia Qualifiers: Encounter type: initial encounter Qualified Code(s): T68.XXXA - Hypothermia, initial encounter
[2018-04-23] MEDS ORDERED: Senna/Docusate Sodium 8.6/50 MG Tablet PO PRN (16:30)
[2018-04-23] MEDS ORDERED: Acetaminophen 325 MG Tablet PO PRN (16:30)
[2018-04-23] MEDS ORDERED: LORazepam 1 MG Tablet PO PRN (17:15)
[2018-04-23] MEDS ORDERED: Haloperidol Inj 5 MG/ML Ampul IV.PUSH PRN (17:15)
[2018-04-23] MEDS ORDERED: Dextrose 50% in Water 50 ML Vial IV.PUSH PRN (17:15)
[2018-04-23] MEDS ORDERED: Sod Chloride 0.9% Inj 1,000 ML IV.CONT SCH (17:19)
[2018-04-23 17:45] LABS: Creatine Kinase 164 U/L (39-308)
[2018-04-23 21:22] LABS: Hepatitits B Surface Antigen Nonreactive (Nonreactive)
[2018-04-23 21:55] LABS: Hepatitis A IgM Antibody Nonreactive (Nonreactive)
[2018-04-23] MEDS: Dextrose 5%/NaCl 0.9% Inj 1,000 ML IV.CONT SCH (23:56)
[2018-04-23] MEDS: Acetaminophen 325 MG Tablet PO PRN (23:57)
[2018-04-23 23:58] LABS: Lipase 215 U/L (73-393)
[2018-04-24 00:01] LABS: Creatine Kinase 170 U/L (39-308)
[2018-04-24] MEDS: Dextrose 5%/NaCl 0.9% Inj 1,000 ML IV.CONT SCH ×3 (07:36→20:29)
[2018-04-24 08:10] LABS: Baso % (Auto) 0.8 % (0.0-2.0); Hematocrit 37.3 % (39.0-51.0); Lymph # (Auto) 0.8 th/mm3 (1.0-4.8); Lymph % (Auto) 15.2 % (9.0-44.0); Mean Corpuscular HGB Conc 34.8 % (32.0-36.0); Mean Corpuscular Hemoglobin 33.6 pg (27.0-34.0); Mean Corpuscular Volume 96.7 fL (80.0-100.0); Mean Platelet Volume 7.9 fL (7.0-11.0); Mono # (Auto) 0.6 th/mm3 (0.0-0.9); Mono % (Auto) 11.7 % (0.0-8.0); Neut # (Auto) 3.6 th/mm3 (1.8-7.7); Neut % (Auto) 71.3 % (16.0-70.0); Platelet Count 155 th/mm3 (150-450); Red Blood Count 3.86 mil/mm3 (4.50-5.90); Red Cell Distribution Width 13.4 % (11.6-17.2); White Blood Count 5.1 th/mm3 (4.0-11.0)
[2018-04-24 08:27] LABS: Alanine Aminotransferase 91 U/L (12-78); Albumin 3.4 g/dL (3.4-5.0); Anion Gap 9 meq/L (5-15); Aspartate Aminotransferase 201 U/L (15-37); Blood Urea Nitrogen 5 mg/dL (7-18); Carbon Dioxide 26.7 meq/L (21.0-32.0); Chloride 104 meq/L (98-107); Glomerular Filtration Rate Greater Than 89 mL/min (>89); Glucose,Random 92 mg/dL (74-106); Potassium 3.5 meq/L (3.5-5.1); Sodium 140 meq/L (136-145)
[2018-04-24 08:28] LABS: Alkaline Phosphatase 96 U/L (45-117); Total Protein 6.6 g/dL (6.4-8.2)
[2018-04-24] MEDS: Sertraline 50 MG Tablet PO SCH (08:46)
--- NOTE | 2018-04-24 09:04 | US ---
EXAM DATE: 04/24/2018 8:44 AM EST AGE/SEX: 33 years / Male INDICATIONS: Fatty liver disease. CLINICAL DATA: This is the patient's initial encounter. Patient reports that signs and symptoms have been present for 1 month and indicates a pain score of 0/10. MEDICAL/SURGICAL HISTORY: . ACL tear. HTN. Tachycardia. . Hand surgery. COMPARISON: No prior exams available for comparison. MEASUREMENTS: Liver:__ 19.5 cm. Common Bile Duct:__ 5mm. Right Kidney:__ 10.8 x 4.6 x 3.7 cm. FINDINGS: Liver: Increased echogenicity without focal lesion or ductal dilatation. Portal Vein: Hepatopedal flow seen in portal vein. Common Duct: No intraluminal mass or stone visualized. Gallbladder: 6 mm cholesterol polyp near the fundus. No stone or sludge. No wall thickening or peric holecystic fluid. Negative sonographic Hassan's sign. Pancreas: The visualized portions are within normal limits Right Kidney: Normal echogenicity and cortical thickness. No mass or hydronephrosis. Other: None. CONCLUSION: 1. Liver is enlarged and fatty. 2. Subcentimeter cholesterol polyp of the gallbladder. Electronically signed by: Tony Bowles MD Board Certified Radiologist 04/24/2018 9:03 AM EST
--- NOTE | 2018-04-24 11:46 | P.PNFP ---
Subjective Interval history: 33-year-old male admitted for altered mental status following hypoglycemic episode, with hypothermia and lactic acid of 4.2. Patient seen and examined this morning. Patient states he is feeling better overall compared to yesterday. Does note mild nausea, resolved with promethazine. Single episode of nonbloody vomiting and diarrhea overnight. He notes general malaise and minimal abdominal pain after vomiting, or when coughing. Denies headache, vision changes, chest pain, shortness of breath, or leg pain. He states that he took his normal dose of propranolol yesterday evening before going to bed, and denies any other herbal supplement use. All questions answered. <Aguila VillarDarleen Lexie - 04/24/18 11:45> Results - Labs Result diagrams: 04/24/18 07:26 04/24/18 07:26 <Renard Paris - 04/24/18 16:46> Abnormal lab results 04/23/18 04/23/18 04/23/18 Range/Units 16:55 21:02 21:54 RBC (4.50-5.90) mil/mm3 Hct (39.0-51.0) % Neut % (Auto) (16.0-70.0) % Gooding % (Auto) (0.0-8.0) % Lymph # (Auto) (1.0-4.8) th/mm3 BUN (7-18) mg/dL POC Glucose 63 L 153 H (68-110) mg/dl Calcium (8.5-10.1) mg/dL Iron (65-175) mcg/dL % Saturation (20-50) % Total Bilirubin (0.2-1.0) mg/dL AST (15-37) U/L ALT (12-78) U/L Troponin I Less than 0.02 L (0.02-0.05) ng/mL Cholesterol (120-200) mg/dL LDL Cholesterol, Calc (0-99) mg/dL HDL Cholesterol (40.0-60.0) mg/dL Acetaminophen (10.0-30.0) mcg/mL 04/23/18 04/24/18 04/24/18 Range/Units 23:20 00:59 03:35 RBC (4.50-5.90) mil/mm3 Hct (39.0-51.0) % Neut % (Auto) (16.0-70.0) % Gooding % (Auto) (0.0-8.0) % Lymph # (Auto) (1.0-4.8) th/mm3 BUN (7-18) mg/dL POC Glucose 128 H 114 H (68-110) mg/dl Calcium (8.5-10.1) mg/dL Iron (65-175) mcg/dL % Saturation (20-50) % Total Bilirubin (0.2-1.0) mg/dL AST (15-37) U/L ALT (12-78) U/L Troponin I Less than 0.02 L (0.02-0.05) ng/mL Cholesterol (120-200) mg/dL LDL Cholesterol, Calc (0-99) mg/dL HDL Cholesterol (40.0-60.0) mg/dL Acetaminophen Less than 2.0 L (10.0-30.0) mcg/mL 04/24/18 04/24/18 04/24/18 Range/Units 07:26 07:26 11:47 RBC 3.86 L (4.50-5.90) mil/mm3 Hct 37.3 L (39.0-51.0) % Neut % (Auto) 71.3 H (16.0-70.0) % Gooding % (Auto) 11.7 H (0.0-8.0) % Lymph # (Auto) 0.8 L (1.0-4.8) th/mm3 BUN 5 L (7-18) mg/dL POC Glucose (68-110) mg/dl Calcium 8.0 L (8.5-10.1) mg/dL Iron 277 H (65-175) mcg/dL % Saturation 84.9 H (20-50) % Total Bilirubin 1.3 H (0.2-1.0) mg/dL AST 201 H (15-37) U/L ALT 91 H (12-78) U/L Troponin I (0.02-0.05) ng/mL Cholesterol 229 H (120-200) mg/dL LDL Cholesterol, Calc 124 H (0-99) mg/dL HDL Cholesterol 82.7 H (40.0-60.0) mg/dL Acetaminophen (10.0-30.0) mcg/mL Short CBC 04/24/18 Range/Units 07:26 WBC 5.1 (4.0-11.0) th/mm3 Hgb 13.0 (13.0-17.0) gm/dL Hct 37.3 L (39.0-51.0) % Plt Count 155 (150-450) th/mm3 BMP 04/24/18 07:26 Sodium 140 Potassium 3.5 Chloride 104 D Carbon Dioxide 26.7 D BUN 5 L Creatinine 0.93 Calcium 8.0 L Cardiac Enzymes 04/23/18 04/23/18 Range/Units 16:55 23:20 Total Creatine Kinase 164 170 (39-308) U/L Troponin I Less than 0.02 L Less than 0.02 L (0.02-0.05) ng/mL Liver Function 04/24/18 Range/Units 07:26 Total Bilirubin 1.3 H (0.2-1.0) mg/dL AST 201 H (15-37) U/L ALT 91 H (12-78) U/L Alkaline Phosphatase 96 (45-117) U/L Albumin 3.4 D (3.4-5.0) g/dL <Renard Paris - 04/24/18 16:46> Abnormal lab results 04/23/18 04/23/18 04/23/18 Range/Units 11:02 16:55 21:02 RBC (4.50-5.90) mil/mm3 Hct (39.0-51.0) % Neut % (Auto) (16.0-70.0) % Gooding % (Auto) (0.0-8.0) % Lymph # (Auto) (1.0-4.8) th/mm3 BUN (7-18) mg/dL POC Glucose 63 L (68-110) mg/dl Calcium (8.5-10.1) mg/dL Total Bilirubin (0.2-1.0) mg/dL AST (15-37) U/L ALT (12-78) U/L Troponin I Less than 0.02 L (0.02-0.05) ng/mL Urine Glucose (UA) 150 H (Negative) mg/dL Urine Mucus Few H (Occasional) /lpf Acetaminophen (10.0-30.0) mcg/mL 04/23/18 04/23/18 04/24/18 Range/Units 21:54 23:20 00:59 RBC (4.50-5.90) mil/mm3 Hct (39.0-51.0) % Neut % (Auto) (16.0-70.0) % Gooding % (Auto) (0.0-8.0) % Lymph # (Auto) (1.0-4.8) th/mm3 BUN (7-18) mg/dL POC Glucose 153 H 128 H (68-110) mg/dl Calcium (8.5-10.1) mg/dL Total Bilirubin (0.2-1.0) mg/dL AST (15-37) U/L ALT (12-78) U/L Troponin I Less than 0.02 L (0.02-0.05) ng/mL Urine Glucose (UA) (Negative) mg/dL Urine Mucus (Occasional) /lpf Acetaminophen Less than 2.0 L (10.0-30.0) mcg/mL 04/24/18 04/24/18 04/24/18 Range/Units 03:35 07:26 07:26 RBC 3.86 L (4.50-5.90) mil/mm3 Hct 37.3 L (39.0-51.0) % Neut % (Auto) 71.3 H (16.0-70.0) % Gooding % (Auto) 11.7 H (0.0-8.0) % Lymph # (Auto) 0.8 L (1.0-4.8) th/mm3 BUN 5 L (7-18) mg/dL POC Glucose 114 H (68-110) mg/dl Calcium 8.0 L (8.5-10.1) mg/dL Total Bilirubin 1.3 H (0.2-1.0) mg/dL AST 201 H (15-37) U/L ALT 91 H (12-78) U/L Troponin I (0.02-0.05) ng/mL Urine Glucose (UA) (Negative) mg/dL Urine Mucus (Occasional) /lpf Acetaminophen (10.0-30.0) mcg/mL Short CBC 04/24/18 Range/Units 07:26 WBC 5.1 (4.0-11.0) th/mm3 Hgb 13.0 (13.0-17.0) gm/dL Hct 37.3 L (39.0-51.0) % Plt Count 155 (150-450) th/mm3 BMP 04/24/18 07:26 Sodium 140 Potassium 3.5 Chloride 104 D Carbon Dioxide 26.7 D BUN 5 L Creatinine 0.93 Calcium 8.0 L Cardiac Enzymes 04/23/18 04/23/18 Range/Units 16:55 23:20 Total Creatine Kinase 164 170 (39-308) U/L Troponin I Less than 0.02 L Less than 0.02 L (0.02-0.05) ng/mL Liver Function 04/24/18 Range/Units 07:26 Total Bilirubin 1.3 H (0.2-1.0) mg/dL AST 201 H (15-37) U/L ALT 91 H (12-78) U/L Alkaline Phosphatase 96 (45-117) U/L Albumin 3.4 D (3.4-5.0) g/dL Urine 04/23/18 Range/Units 11:02 Urine Color Straw (Yellw/Straw) Urine Clarity Clear (Clear) Urine pH 6.0 (5.0-8.5) Ur Specific Whiting 1.006 (1.002-1.035) Urine Protein Negative (Neg-Trace) mg/dL Urine Glucose (UA) 150 H (Negative) mg/dL <Darleen Roberto - 04/24/18 11:45> - Imaging Impressions Liver Ultrasound 04/24/18 00:00 CONCLUSION: 1. Liver is enlarged and fatty. 2. Subcentimeter cholesterol polyp of the gallbladder. <Renard Paris - 04/24/18 16:46> Impressions Liver Ultrasound 04/24/18 00:00 CONCLUSION: 1. Liver is enlarged and fatty. 2. Subcentimeter cholesterol polyp of the gallbladder. <Darleen Roberto - 04/24/18 11:45> Physical Exam Vital signs: Vital Signs 04/23/18 17:03 04/23/18 17:21 04/23/18 17:23 Temperature 98.1 F Pulse Rate 79 82 Respiratory Rate 17 20 Blood Pressure 117/89 141/86 H Pulse Oximetry 100 99 100 04/23/18 19:19 04/23/18 19:39 04/23/18 20:00 Temperature 97.1 F L Pulse Rate 74 Respiratory Rate 16 Blood Pressure 140/91 H Pulse Oximetry 98 100 100 04/24/18 00:00 04/24/18 04:00 04/24/18 08:16 Temperature 98.3 F 97.9 F 98.1 F Pulse Rate 70 75 70 Respiratory Rate 16 18 16 Blood Pressure 134/92 H 135/83 142/92 H Pulse Oximetry 99 100 99 04/24/18 08:46 04/24/18 12:31 04/24/18 14:27 Temperature 98.1 F Pulse Rate 91 H 16 L Respiratory Rate 16 Blood Pressure 136/87 Pulse Oximetry 100 100 04/24/18 16:00 Temperature 98.7 F Pulse Rate 93 H Respiratory Rate 16 Blood Pressure 133/90 Pulse Oximetry 99 Intake & Output 04/23/18 04/24/18 04/24/18 18:59 06:59 18:59 Intake Total 1700 / 1700 680 / 680 1000 / 1000 Balance 1700 / 1700 680 / 680 1000 / 1000 Weight 72.575 kg 72.575 kg Intake: IV 1700 / 1700 200 / 200 1000 / 1000 D5W/1/2 NS Inj 1,000 ML @ 125 700 / 700 mls/hr IV.CONT .Q8H DIXIE Rx#: [id number] D5W/Normal Saline Inj 1,000 ML 1000 / 1000 @ 115 mls/hr IV.CONT .Q8H42M DIXIE Rx#:[id number] NS Inj 1,000 ML @ 115 mls/hr IV 200 / 200 .CONT .Q8H42M DIXIE Rx#:[id number] NS Inj 1,000 ML @ 1000 mls/hr 1000 / 1000 IV.SIG BOLUS DIXIE Rx#:[id number] Oral 480 / 480 Other: # Voids 1 1 Weight On Admission 72.575 kg <Renard Paris - 04/24/18 16:46> Vital Signs 04/23/18 13:17 04/23/18 17:03 04/23/18 17:21 Temperature 98.1 F Pulse Rate 81 79 82 Respiratory Rate 17 17 20 Blood Pressure 96/58 L 117/89 141/86 H Pulse Oximetry 99 100 99 04/23/18 17:23 04/23/18 19:19 04/23/18 19:39 Temperature 97.1 F L Pulse Rate 74 Respiratory Rate 16 Blood Pressure 140/91 H Pulse Oximetry 100 98 100 04/23/18 20:00 04/24/18 00:00 04/24/18 04:00 Temperature 98.3 F 97.9 F Pulse Rate 70 75 Respiratory Rate 16 18 Blood Pressure 134/92 H 135/83 Pulse Oximetry 100 99 100 04/24/18 08:16 Temperature 98.1 F Pulse Rate 70 Respiratory Rate 16 Blood Pressure 142/92 H Pulse Oximetry 99 Intake & Output 04/23/18 04/24/18 04/24/18 18:59 06:59 18:59 Intake Total 1700 / 1700 680 / 680 1000 / 1000 Balance 1700 / 1700 680 / 680 1000 / 1000 Weight 72.575 kg 72.575 kg Intake: IV 1700 / 1700 200 / 200 1000 / 1000 D5W/1/2 NS Inj 1,000 ML @ 125 700 / 700 mls/hr IV.CONT .Q8H DIXIE Rx#: [id number] D5W/Normal Saline Inj 1,000 ML 1000 / 1000 @ 115 mls/hr IV.CONT .Q8H42M DIXIE Rx#:[id number] NS Inj 1,000 ML @ 115 mls/hr IV 200 / 200 .CONT .Q8H42M DIXIE Rx#:[id number] NS Inj 1,000 ML @ 1000 mls/hr 1000 / 1000 IV.SIG BOLUS DIXIE Rx#:[id number] Oral 480 / 480 Other: # Voids 1 1 Weight On Admission 72.575 kg <Darleen Roberto Lexie - 04/24/18 11:45> Narrative: GENERAL: 33-year-old, well nourished, well developed M sitting up in bed. In no acute distress. SKIN: Warm and dry. HEAD: Atraumatic. Normocephalic. EYES: EMOI. No scleral icterus. No injection or drainage. ENT: No nasal bleeding or discharge. Mucous membranes pink and moist. Airway patent. CARDIOVASCULAR: RRR without murmur. PT and DP pulses 2+ bilaterally. RESPIRATORY: No accessory muscle use. Clear to auscultation with equal breath sounds. No crackles, wheeze, rales or rhonchi. GASTROINTESTINAL: BS in all 4 quadrants. Abdomen soft, non-tender, nondistended. Hepatic and splenic margins not palpable. MUSCULOSKELETAL: Extremities without clubbing, cyanosis, or edema. No obvious deformities. No calf tenderness. No CVA tenderness. NEUROLOGICAL: Awake and alert. No obvious cranial nerve deficits. Motor grossly within normal limits. Normal speech. <Darleen Roberto - 04/24/18 11:45> Assessment and Plan - Assessment (1) Nausea, vomiting, and diarrhea Code(s): R11.2 - Nausea with vomiting, unspecified; R19.7 - Diarrhea, unspecified Status: Acute (2) Elevated LFTs Code(s): R94.5 - Abnormal results of liver function studies Status: Acute (3) Prolonged Q-T interval on ECG Code(s): R94.31 - Abnormal electrocardiogram [ECG] [EKG] Status: Acute (4) Left-sided chest pain Code(s): R07.9 - Chest pain, unspecified Status: Acute (5) Altered mental status Code(s): R41.82 - Altered mental status, unspecified Status: Resolved (6) Hypothermia Code(s): T68.XXXA - Hypothermia, initial encounter Status: Resolved (7) Hypotension Code(s): I95.9 - Hypotension, unspecified Status: Acute (8) History of tachycardia Code(s): Z87.898 - Personal history of other specified conditions Status: Resolved (9) Nutrition, metabolism, and development symptoms Code(s): R63.8 - Other symptoms and signs concerning food and fluid intake Status: Acute (10) DVT prophylaxis Status: Acute <Renard Paris - 04/24/18 16:46> (1) Nausea, vomiting, and diarrhea Code(s): R11.2 - Nausea with vomiting, unspecified; R19.7 - Diarrhea, unspecified Status: Acute (2) Elevated LFTs Code(s): R94.5 - Abnormal results of liver function studies Status: Acute (3) Prolonged Q-T interval on ECG Code(s): R94.31 - Abnormal electrocardiogram [ECG] [EKG] Status: Acute (4) Left-sided chest pain Code(s): R07.9 - Chest pain, unspecified Status: Acute (5) Altered mental status Code(s): R41.82 - Altered mental status, unspecified Status: Resolved (6) Hypothermia Code(s): T68.XXXA - Hypothermia, initial encounter Status: Resolved (7) Hypotension Code(s): I95.9 - Hypotension, unspecified Status: Acute (8) History of tachycardia Code(s): Z87.898 - Personal history of other specified conditions Status: Resolved (9) Nutrition, metabolism, and development symptoms Code(s): R63.8 - Other symptoms and signs concerning food and fluid intake Status: Acute (10) DVT prophylaxis Status: Acute <Darleen Roberto - 04/24/18 16:37> - Assessment and Plan Elevated LFTs. History of fatty liver disease, workup at outpatient clinic in [place], [place]. -Hepatitis panel non-reactive. -Tylenol level, lipase WNL -HIV, iron studies, AFP and lipid panel ordered. -Right upper quadrant ultrasound showed enlarged fatty liver and subcentimeter cholesterol polyp of the gallbladder -To request records from prior work up [place] Nausea, vomiting, diarrhea Significant travel history in the past 2 months -Stool culture and Gram stain ordered -Phenergan 12.5 mg q6h PRN for nausea Hypoglycemia Due to elevated BGL in the ED up to 170s, patient was switched to NS IVF overnight, but an episode of hypoglycemia following IVF change. -D5W NS was re-initiated. -BGL overnight following D5W NS were between 85-130 -Continue Accu-Cheks -Hypoglycemia protocol ordered -C-peptide level ordered SIRS, without source of infection, now resolved Hypothermia and lactic acidosis on arrival to ED. -CXR showed no acute abnormality -S/p 1 L NS bolus and D5W 1/2 NS at maintenance in ED. -Repeat LA decreased from 4.2 to 1.7 following administration of normal saline bolus in the ED. -CMP shows improving LFTs. Initially AST/ALT 627/144 , improved to 201/91 today. -Blood cultures NGTD x1 day -Flu swab negative -CBC WNL AMS likely secondary to hypoglycemia, now resolved. BGL in the 40s on scene, given D50 by EMS. BGL in ED 178. -CT head showed no acute abnormality -UDS negative -Serum alcohol level < 3 -Acetaminophen level < 2 Left-sided CP, now resolved. ACS r/o initiated in ED. -Troponin I negative x1. Serial troponins ordered -Initial EKG in ED showed bradycardia of 52bpm with prolonged QTc 510ms. Serial EKG ordered Prolonged QT on EKG -Avoid QT prolonging medications -Based on cardiac telemetry due to prolonged QT and propranolol use for tachycardia. History of tachycardia, on propranolol 60 mg daily -Will hold home medications, due to current bradycardia History of significant alcohol use -Placed on CIWA protocol History of depression -Continue home sertraline FEN - Fluids: IVF NS @ 115 ml/hr - Monitor replace electrolytes as needed - Regular diet, to advance from clears as tolerated PPX - Bilateral lower extremity SCDs - Protonix 40mgs daily for GI ppx sdw Dr. Paris and Dr. Brothers <Darleen Roberto Lexie - 04/24/18 16:39> - Attending Attestation The exam, history, and the medical decision-making described in the above note were completed with the assistance of the resident physician. I reviewed and agree with the findings presented. I attest that I had a [id number] encounter with the patient on the same day, and personally performed and documented my assessment and findings in the medical record. 1. Transaminitis: Known hx of EtOH overuse and NAFLD, could be these alone but seems out of proportion to amount of EtOH intake request records from last hospitalization other labs negative as above iron level high, will add ferritin continue to trend. counseled that now in light of these very high levels, should avoid EtOH altogether. 2. Hypoglycemia: improving may be 2/2 some acute liver failure c-peptide pending propanolol stopped 3. Bradycardia resolved off propanolol 4. QT prolongation much improved 5. lactic acidosis/HAGMA improved with IVF, no abx blood cx, stool studies pending 6. Hypothermia resolved now, monitor again concerning for OD or sepsis 7. hyponatremia resolved after IVF 8. HTN still ok off propanolol 9. ZHENG may need to start SSRI instead of BB before d/c 10. EtOh overuse 11. NAFLD overall hopeful d/c tomorrow after we get records and see if any further inpatient work up required. needs to go back to outpatient GI <Renard Paris - 04/24/18 16:46> <Sung R1,Darleen B - Last Filed: 04/24/18 16:37> (6) Hypothermia Qualifiers: Encounter type: initial encounter Qualified Code(s): T68.XXXA - Hypothermia, initial encounter <Renard Paris K - Last Filed: 04/24/18 16:46> (6) Hypothermia Qualifiers: Encounter type: initial encounter Qualified Code(s): T68.XXXA - Hypothermia, initial encounter <Sung R1,Darleen B - Last Filed: 04/24/18 16:37> (6) Hypothermia Qualifiers: Encounter type: initial encounter Qualified Code(s): T68.XXXA - Hypothermia, initial encounter <RainaRenard Maura - Last Filed: 04/24/18 16:46> (6) Hypothermia Qualifiers: Encounter type: initial encounter Qualified Code(s): T68.XXXA - Hypothermia, initial encounter
[2018-04-24] MEDS: Acetaminophen 325 MG Tablet PO PRN (12:47)
[2018-04-24 13:05] LABS: % Iron Saturation 84.9 % (20-50)
[2018-04-24 13:07] LABS: Chol/HDL Ratio 2.76 Ratio; HDL Cholesterol 82.7 mg/dL (40.0-60.0)
--- NOTE | 2018-04-24 14:59 | ECG ---
Date Performed: 04/23/2018 Time Performed: 09:15:02 PTAGE: 33 years EKG: SINUS BRADYCARDIA PROLONGED QT INTERVAL ABNORMAL ECG NO PREVIOUS TRACING DOCTOR: Fredy Montilla Interpretating Date/Time 04/24/2018 14:57:46
--- NOTE | 2018-04-24 15:26 | ECG ---
Date Performed: 04/23/2018 Time Performed: 23:51:54 PTAGE: 33 years EKG: Sinus rhythm NORMAL ECG Since PREVIOUS TRACING , no significant change noted PREVIOUS TRACIN04/23/2018 17.00 DOCTOR: Fredy Montilla Interpretating Date/Time 04/24/2018 15:24:48
--- NOTE | 2018-04-24 15:26 | ECG ---
Date Performed: 04/23/2018 Time Performed: 17:00:49 PTAGE: 33 years EKG: Sinus rhythm NONSPECIFIC T-WAVE ABNORMALITY BORDERLINE ECG Since PREVIOUS TRACING , no significant change noted PREVIOUS TRACIN04/23/2018 09.15 DOCTOR: Fredy Montilla Interpretating Date/Time 04/24/2018 15:24:59
[2018-04-25] MEDS: Dextrose 5%/NaCl 0.9% Inj 1,000 ML IV.CONT SCH ×3 (01:54→09:00)
[2018-04-25 07:30] LABS: Baso % (Auto) 0.8 % (0.0-2.0); Eos # (Auto) 0.1 th/mm3 (0.0-0.4); Eos % (Auto) 1.6 % (0.0-4.0); Hematocrit 35.8 % (39.0-51.0); Hemoglobin 12.6 gm/dL (13.0-17.0); Lymph # (Auto) 0.8 th/mm3 (1.0-4.8); Lymph % (Auto) 22.1 % (9.0-44.0); Mean Corpuscular HGB Conc 35.1 % (32.0-36.0); Mean Corpuscular Hemoglobin 33.9 pg (27.0-34.0); Mean Corpuscular Volume 96.6 fL (80.0-100.0); Mean Platelet Volume 8.4 fL (7.0-11.0); Mono # (Auto) 0.4 th/mm3 (0.0-0.9); Mono % (Auto) 11.1 % (0.0-8.0); Neut # (Auto) 2.5 th/mm3 (1.8-7.7); Neut % (Auto) 64.4 % (16.0-70.0); Platelet Count 160 th/mm3 (150-450); Red Blood Count 3.71 mil/mm3 (4.50-5.90); Red Cell Distribution Width 13.4 % (11.6-17.2); White Blood Count 3.8 th/mm3 (4.0-11.0)
[2018-04-25 08:15] LABS: Alanine Aminotransferase 75 U/L (12-78); Albumin 3.7 g/dL (3.4-5.0); Anion Gap 8 meq/L (5-15); Aspartate Aminotransferase 129 U/L (15-37); Blood Urea Nitrogen 3 mg/dL (7-18); Calcium 8.7 mg/dL (8.5-10.1); Carbon Dioxide 26.9 meq/L (21.0-32.0); Chloride 106 meq/L (98-107); Glomerular Filtration Rate Greater Than 89 mL/min (>89); Glucose,Random 87 mg/dL (74-106); Potassium 3.4 meq/L (3.5-5.1); Sodium 141 meq/L (136-145)
[2018-04-25 08:18] LABS: Alkaline Phosphatase 94 U/L (45-117)
[2018-04-25] MEDS: Sertraline 50 MG Tablet PO SCH (08:28)
[2018-04-25 08:53] VITALS: RESP 20
--- NOTE | 2018-04-25 09:20 | P.PNFP ---
Subjective Interval history: Patient seen and examined this morning. No complaints at present. Patient states he feels well today. Denies nausea, vomiting, headache, chest pain, palpitations, shortness of breath, diarrhea, leg pain, or swelling. All questions answered. <Aguila AureaDarleen B - 04/25/18 20:45> Results - Labs Result diagrams: 04/25/18 06:25 04/25/18 06:25 <Renard Paris - 04/25/18 21:24> Abnormal lab results 04/25/18 04/25/18 04/25/18 Range/Units 06:25 06:25 14:41 WBC 3.8 L (4.0-11.0) th/mm3 RBC 3.71 L (4.50-5.90) mil/mm3 Hgb 12.6 L (13.0-17.0) gm/dL Hct 35.8 L (39.0-51.0) % [place] % (Auto) 11.1 H (0.0-8.0) % Lymph # (Auto) 0.8 L (1.0-4.8) th/mm3 Potassium 3.4 L (3.5-5.1) meq/L BUN 3 L (7-18) mg/dL POC Glucose 117 H (68-110) mg/dl Total Bilirubin 1.1 H (0.2-1.0) mg/dL AST 129 H (15-37) U/L Short CBC 04/25/18 Range/Units 06:25 WBC 3.8 L (4.0-11.0) th/mm3 Hgb 12.6 L (13.0-17.0) gm/dL Hct 35.8 L (39.0-51.0) % Plt Count 160 (150-450) th/mm3 BMP 04/25/18 06:25 Sodium 141 Potassium 3.4 L Chloride 106 Carbon Dioxide 26.9 BUN 3 L Creatinine 0.86 Calcium 8.7 Liver Function 04/25/18 Range/Units 06:25 Total Bilirubin 1.1 H (0.2-1.0) mg/dL AST 129 H (15-37) U/L ALT 75 (12-78) U/L Alkaline Phosphatase 94 (45-117) U/L Albumin 3.7 (3.4-5.0) g/dL <Renard Paris - 04/25/18 21:24> Abnormal lab results 04/24/18 04/25/18 04/25/18 Range/Units 11:47 06:25 06:25 WBC 3.8 L (4.0-11.0) th/mm3 RBC 3.71 L (4.50-5.90) mil/mm3 Hgb 12.6 L (13.0-17.0) gm/dL Hct 35.8 L (39.0-51.0) % [place] % (Auto) 11.1 H (0.0-8.0) % Lymph # (Auto) 0.8 L (1.0-4.8) th/mm3 Potassium 3.4 L (3.5-5.1) meq/L BUN 3 L (7-18) mg/dL Iron 277 H (65-175) mcg/dL % Saturation 84.9 H (20-50) % Total Bilirubin 1.1 H (0.2-1.0) mg/dL AST 129 H (15-37) U/L Cholesterol 229 H (120-200) mg/dL LDL Cholesterol, Calc 124 H (0-99) mg/dL HDL Cholesterol 82.7 H (40.0-60.0) mg/dL Short CBC 04/25/18 Range/Units 06:25 WBC 3.8 L (4.0-11.0) th/mm3 Hgb 12.6 L (13.0-17.0) gm/dL Hct 35.8 L (39.0-51.0) % Plt Count 160 (150-450) th/mm3 BMP 04/25/18 06:25 Sodium 141 Potassium 3.4 L Chloride 106 Carbon Dioxide 26.9 BUN 3 L Creatinine 0.86 Calcium 8.7 Liver Function 04/25/18 Range/Units 06:25 Total Bilirubin 1.1 H (0.2-1.0) mg/dL AST 129 H (15-37) U/L ALT 75 (12-78) U/L Alkaline Phosphatase 94 (45-117) U/L Albumin 3.7 (3.4-5.0) g/dL <Darleen Roberto B - 04/25/18 09:20> Physical Exam Vital signs: Vital Signs 04/24/18 22:43 04/24/18 23:27 04/25/18 00:00 Temperature 98.2 F Pulse Rate 91 H 63 Respiratory Rate 16 Blood Pressure 131/81 Pulse Oximetry 100 100 04/25/18 04:00 04/25/18 08:15 04/25/18 08:52 Temperature 97.5 F L 98.6 F Pulse Rate 106 H 91 H 70 Respiratory Rate 18 20 Blood Pressure 143/87 H 139/94 H Pulse Oximetry 100 99 04/25/18 09:44 04/25/18 11:41 04/25/18 12:00 Temperature 98.5 F Pulse Rate 84 92 H Respiratory Rate 20 Blood Pressure 135/83 Pulse Oximetry 100 100 Intake & Output 04/25/18 04/25/18 04/26/18 06:59 18:59 06:59 Intake Total 2600 / 2600 1000 / 1000 Balance 2600 / 2600 1000 / 1000 Intake: IV 1999 / 1999 1000 / 1000 D5W/Normal Saline Inj 1,000 ML 1999 / 1999 1000 / 1000 @ 115 mls/hr IV.CONT .Q8H42M [facility] Rx#:[id number] Oral 600 / 600 Other: # Voids 3 1 Date of Last Bowel Movement 04/25/18 # Bowel Movements 1 <Renard Paris K - 04/25/18 21:24> Vital Signs 04/24/18 12:31 04/24/18 14:27 04/24/18 16:00 Temperature 98.1 F 98.7 F Pulse Rate 16 L 93 H Respiratory Rate 16 16 Blood Pressure 136/87 133/90 Pulse Oximetry 100 100 99 04/24/18 19:35 04/24/18 20:30 04/24/18 22:43 Temperature 98.9 F Pulse Rate 86 75 Respiratory Rate 16 Blood Pressure 130/91 H Pulse Oximetry 100 100 04/24/18 23:27 04/25/18 00:00 04/25/18 04:00 Temperature 98.2 F 97.5 F L Pulse Rate 91 H 63 106 H Respiratory Rate 16 18 Blood Pressure 131/81 143/87 H Pulse Oximetry 100 100 04/25/18 08:52 Temperature 98.6 F Pulse Rate 70 Respiratory Rate 20 Blood Pressure 139/94 H Pulse Oximetry 99 Intake & Output 04/24/18 04/25/18 04/25/18 18:59 06:59 18:59 Intake Total 1000 / 1000 2600 / 2600 Balance 1000 / 999 2600 / 2600 Intake: IV 1000 / 1000 1999 / 1999 D5W/Normal Saline Inj 1,000 ML 999 / 999 @ 115 mls/hr IV.CONT .Q8H42M [facility] Rx#:[id number] Oral 600 / 600 Other: # Voids 1 3 <Darleen Roberto 04/25/18 09:20> Narrative: GENERAL: 33-year-old, well nourished, well developed M resting comfortably in bed. In no acute distress. SKIN: Warm and dry. HEAD: Atraumatic. Normocephalic. EYES: EMOI. No scleral icterus. No injection or drainage. CARDIOVASCULAR: RRR without murmur. PT and DP pulses 2+ bilaterally. RESPIRATORY: No accessory muscle use. Clear to auscultation with equal breath sounds. No crackles, wheeze, rales or rhonchi. GASTROINTESTINAL: BS in all 4 quadrants. Abdomen soft, non-tender, nondistended. MUSCULOSKELETAL: Extremities without clubbing, cyanosis, or edema. No obvious deformities. No calf tenderness. No CVA tenderness. NEUROLOGICAL: Awake and alert. No obvious cranial nerve deficits. Motor grossly within normal limits. Normal speech. <Darleen Roberto 04/25/18 20:45> Assessment and Plan - Assessment (1) Nausea, vomiting, and diarrhea Code(s): R11.2 - Nausea with vomiting, unspecified; R19.7 - Diarrhea, unspecified Status: Acute (2) Elevated LFTs Code(s): R94.5 - Abnormal results of liver function studies Status: Acute (3) Prolonged Q-T interval on ECG Code(s): R94.31 - Abnormal electrocardiogram [ECG] [EKG] Status: Acute (4) Left-sided chest pain Code(s): R07.9 - Chest pain, unspecified Status: Acute (5) Altered mental status Code(s): R41.82 - Altered mental status, unspecified Status: Resolved (6) Hypothermia Code(s): T68.XXXA - Hypothermia, initial encounter Status: Resolved (7) Hypotension Code(s): I95.9 - Hypotension, unspecified Status: Acute (8) History of tachycardia Code(s): Z87.898 - Personal history of other specified conditions Status: Resolved (9) Nutrition, metabolism, and development symptoms Code(s): R63.8 - Other symptoms and signs concerning food and fluid intake Status: Acute (10) DVT prophylaxis Status: Acute <Renard Paris - 04/25/18 21:24> (1) Nausea, vomiting, and diarrhea Code(s): R11.2 - Nausea with vomiting, unspecified; R19.7 - Diarrhea, unspecified Status: Acute (2) Elevated LFTs Code(s): R94.5 - Abnormal results of liver function studies Status: Acute (3) Prolonged Q-T interval on ECG Code(s): R94.31 - Abnormal electrocardiogram [ECG] [EKG] Status: Acute (4) Left-sided chest pain Code(s): R07.9 - Chest pain, unspecified Status: Acute (5) Altered mental status Code(s): R41.82 - Altered mental status, unspecified Status: Resolved (6) Hypothermia Code(s): T68.XXXA - Hypothermia, initial encounter Status: Resolved (7) Hypotension Code(s): I95.9 - Hypotension, unspecified Status: Acute (8) History of tachycardia Code(s): Z87.898 - Personal history of other specified conditions Status: Resolved (9) Nutrition, metabolism, and development symptoms Code(s): R63.8 - Other symptoms and signs concerning food and fluid intake Status: Acute (10) DVT prophylaxis Status: Acute <Darleen Roberto - 04/25/18 20:57> - Assessment and Plan Elevated LFTs History of fatty liver disease, workup at outpatient clinic in [place], [place]. -LFTs downtrending from admission -Hepatitis panel non-reactive. -Tylenol level, lipase, AFP WNL -HIV negative -Iron studies showed elevated iron level of 277 and iron saturation of 84.9% -Lipid panel showed elevated total cholesterol level of 229, LDL 124 and HDL 82.7 -Right upper quadrant ultrasound showed enlarged fatty liver and subcentimeter cholesterol polyp of the gallbladder -To request records from prior work up [place] Nausea, vomiting, diarrhea Significant travel history in the past 2 months -Stool culture and Gram stain ordered -Phenergan 12.5 mg q6h PRN for nausea Hypoglycemia, now resolved Patient with BGL in 90-100s on D5W NS -As patient is able to tolerate PO, will stop IVF -Continue to monitor BGL, if 2-3 accuchecks WNL, can consider discharge -Continue Accu-Cheks -Hypoglycemia protocol ordered -C-peptide level ordered SIRS, without source of infection, now resolved Hypothermia and lactic acidosis on arrival to ED. -CXR showed no acute abnormality -S/p 1 L NS bolus and D5W 1/2 NS at maintenance in ED. -Repeat LA decreased from 4.2 to 1.7 following administration of normal saline bolus in the ED. -CMP shows improving LFTs. Initially AST/ALT 627/144 , improved to 129/77 today. -Blood cultures NGTD x1 day -Flu swab negative -CBC WNL AMS likely secondary to hypoglycemia, now resolved. BGL in the 40s on scene, given D50 by EMS. BGL in ED 178. -CT head showed no acute abnormality -UDS negative -Serum alcohol level < 3 -Acetaminophen level < 2 Left-sided CP, now resolved. ACS r/o initiated in ED. -Troponin I negative x1. Serial troponins ordered -Initial EKG in ED showed bradycardia of 52bpm with prolonged QTc 510ms. Serial EKG ordered Prolonged QT on EKG -Avoid QT prolonging medications -Based on cardiac telemetry due to prolonged QT and propranolol use for tachycardia. History of tachycardia, on propranolol 60 mg daily -Restarted on lowered dose of propranolol, will continue to monitor HR and BP History of significant alcohol use -Placed on CIWA protocol History of depression -Continue home sertraline FEN - Fluids: IVF NS @ 115 ml/hr - Monitor replace electrolytes as needed - Regular diet, to advance from clears as tolerated PPX - Bilateral lower extremity SCDs - Protonix 40mgs daily for GI ppx Anticipate discharge later today if BGL WNL with normal PO intake, not on D5W IVF, and tolerates re-initiation of propranolol at lowered dose. cb Paris and Dr. Martinez <Darleen Roberto - 04/25/18 20:45> - Attending Attestation The exam, history, and the medical decision-making described in the above note were completed with the assistance of the resident physician. I reviewed and agree with the findings presented. I attest that I had a [id number] encounter with the patient on the same day, and personally performed and documented my assessment and findings in the medical record. Feeling much better and labs continuing to downtrend. we discussed follow up plan extensively and he agreed to f/u with GI and PCP in [facility]. Plan was to make sure he did not become hypoglycemic again off of the d5 rechecking in afternoon but he would have been discharged. patient needed to leave suddenly and left AMA before resident who was paged had time to check blood glucose value and place d/c order. <Renard Paris Maura - 04/25/18 21:24> <Darleen Roberto - Last Filed: 04/25/18 20:57> (6) Hypothermia Qualifiers: Encounter type: initial encounter Qualified Code(s): T68.XXXA - Hypothermia, initial encounter <Renard Paris Maura - Last Filed: 04/25/18 21:24> (6) Hypothermia Qualifiers: Encounter type: initial encounter Qualified Code(s): T68.XXXA - Hypothermia, initial encounter <Darleen Roberto - Last Filed: 04/25/18 20:57> (6) Hypothermia Qualifiers: Encounter type: initial encounter Qualified Code(s): T68.XXXA - Hypothermia, initial encounter <Renard Paris - Last Filed: 04/25/18 21:24> (6) Hypothermia Qualifiers: Encounter type: initial encounter Qualified Code(s): T68.XXXA - Hypothermia, initial encounter
[2018-04-25 09:44] VITALS: O2SAT 100
[2018-04-25 11:42] VITALS: BP 135/83; TEMP 98.5
[2018-04-25 12:50] VITALS: PULSE 92
--- NOTE | 2018-04-25 16:32 | P.PNADD ---
Addendum to Inpatient Note Reason for Addendum: Additional Documentation Additional information: Page regarding patient received at 4:10PM. Page answered at 4:15PM. Nursing staff state that patient was calm and amenable to staying to for further observation of BGL, HR and blood pressure after re-starting propanolol at lower dose and stopping D5W IVF earlier this afternoon, however, after receiving a phone call from a co-worker around 3:50PM, patient became agitated, stating that he had to leave right at that moment. Patient works for [employer] around the [employer] and noted that he was supposed to leave yesterday for [employer] when evaluated this morning. Per staff, following the phone call, patient stated that he had to leave immediately, because a coworker who was his ride to [employer] was leaving at that time. Nursing staff attempted to discuss risk of leaving the hospital against medical advice, but patient was determined to leave the hospital. Per staff, patient voiced understanding and would not wait to speak to a physician. He was amenable to signing paperwork to leave AM and left before resident team was able to discuss possible discharge, including the importance of outpatient follow up with the patient.
--- NOTE | 2018-04-26 11:34 | P.DS ---
Date of admission: 04/23/18 16:10 Primary care physician: No Primary Care Physician Brief History from admission: 33-year-old male with history of tachycardia for which he takes propranolol, presented to the ED via EMS for altered mental status due to hypoglycemia down to the 40s. Patient was given D50 in route to the ED. Patient was found to be hypothermic and bradycardic on arrival to the ED with a lactic acidosis of 4.2. Patient states that this morning after urinating he felt like he was "going to pass out", with significant palpitations, sweating episode and jitteriness. Patient states that he started getting tunnel vision, and that when he called his boss his mom. Per patient she likely showed up within 5 minutes of him losing consciousness and contacted EMS. Patient remembers waking up in the ambulance on his way to the hospital but is otherwise unsure of what occurred. He states the last time he ate last night was around 10 PM. No history of hypoglycemic episodes in the past. No recent change in medications, and takes propranolol as prescribed. Patient complaining of nausea, and admits to vomiting once in the ED, nonbloody emesis and a single episode of watery diarrhea. He notes general malaise and body aches currently. He also complained of dull, aching, nonradiating left- sided chest pain in the ED which has now started to resolve. No recent upper respiratory infections or notable sick contacts. Denies headache, change in vision, nasal congestion, sinus pain, sore throat, abdominal pain, pain in his legs. Patient admits to a history of travel including a cruise to the [facility], and a road trip from [place] to [place] within the last 2 months. He notes that he was diagnosed with elevated LFTs at an outpatient clinic in [place], [place] in the last month or so, for which he underwent a workup including an EGD, colonoscopy and ultrasound of the liver. Patient was noted to have fatty liver disease due to alcoholism and a "bacterial or fungal infection" though he is unable to indicate if this was found in the stomach, small bowel, colon or liver. 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 Past medical history: Tachycardia, for which he takes propranolol. GERD, for which he takes pantoprazole. Depression, for which he takes sertraline. Family history: No history of arrhythmias or sudden cardiac at a young age. History of CAD and high cholesterol in both maternal and paternal sides. Social history: Works at the [employer] Former smoker of approximately 1 pack/week for 3 years. History of using chewing tobacco for approximately 5 years. He now occasionally uses an e- cigarette. EtOH: Drinks 2 to 3 12-16 ounce glasses of hard liquor daily, which he notes is a decrease from prior ingestion of a 6 pack of beer and 3-4 shots of hard liquor daily. Denies substance abuse. DS: Diagnosis - Discharge Diagnosis (1) Nausea, vomiting, and diarrhea Status: Acute (2) Elevated LFTs Status: Acute (3) Prolonged Q-T interval on ECG Status: Acute (4) Left-sided chest pain Status: Acute (5) Altered mental status Status: Resolved (6) Hypothermia Status: Resolved (7) Hypotension Status: Acute (8) History of tachycardia Status: Resolved (9) Nutrition, metabolism, and development symptoms Status: Acute (10) DVT prophylaxis Status: Acute DS: Summary Hospital Course: 33-year-old male with history of tachycardia for which he takes propranolol, GERD and depression admitted for altered mental status following hypoglycemic episode, with hypothermia and lactic acid of 4.2. Hypothermia, hypoglycemia, and lactic acidosis improved overnight following IV fluids. Patient workup for elevated LFTs which showed a hepatitis panel was nonreactive, Tylenol level, lipase, AFP were all within normal limits. HIV negative. Patient also found to have elevated LFTs Patient left AMA. - Time Spent with Patient Total time spent providing and/or coordinating discharge services: Greater than 30 minutes - Quality: VTE Deep Vein Thrombosis/Pulmonary Embolism Present on Admission: No Exam Vital signs: Vital Signs 04/25/18 11:41 04/25/18 12:00 Temperature 98.5 F Pulse Rate 84 92 H Respiratory Rate 20 Blood Pressure 135/83 Pulse Oximetry 100 Intake & Output 04/25/18 04/26/18 04/26/18 18:59 06:59 18:59 Intake Total 1000 / 1000 Balance 1000 / 1000 Intake: IV 1000 / 1000 D5W/Normal Saline Inj 1,000 ML 1000 / 1000 @ 115 mls/hr IV.CONT .Q8H42M [facility] Rx#:[id number] Other: # Voids 1 Date of Last Bowel Movement 04/25/18 # Bowel Movements 1 Results Labs on day of discharge: Labs from last 24 hours 04/25/18 04/25/18 14:41 12:28 POC Glucose 117 H 89 Preliminary micro results at discharge 04/23/18 09:30 Aerobic Blood Culture - Preliminary Blood - Peripheral No growth in 3 days Anaerobic Blood Culture - Preliminary No growth in 3 days 04/23/18 09:25 Aerobic Blood Culture - Preliminary Blood - Peripheral No growth in 3 days Anaerobic Blood Culture - Preliminary No growth in 3 days - Impressions ITS Impressions Chest X-Ray 04/23/18 09:20 CONCLUSION: No acute cardiopulmonary disease Head CT 04/23/18 09:20 CONCLUSION: 1. No acute intracranial abnormality . . Liver Ultrasound 04/24/18 00:00 CONCLUSION: 1. Liver is enlarged and fatty. 2. Subcentimeter cholesterol polyp of the gallbladder. Discharge Plan - Discharge Disposition Patient Disposition: 07 Against Medical Advice - Physicians Team Primary Care Provider: Primary Care Physici,No Attending Provider: Renard Paris
== END 2018-04-25 16:07 | disposition left against medical advice (07) ==
LOC: NEDA 08:51 → NEPC 08:51 → NEDA 17:17 → NEPHCDU 17:18
PROVIDERS: ADMIT Family Medicine; ATTEND Family Medicine
DX: K76.0 Fatty (change of) liver, not elsewhere classified; T68.XXXA Hypothermia, initial encounter; Z79.899 Other long term (current) drug therapy; E16.2 Hypoglycemia, unspecified; R07.89 Other chest pain; F10.20 Alcohol dependence, uncomplicated; R41.82 Altered mental status, unspecified; K21.9 Gastro-esophageal reflux disease without esophagitis; E87.2 Acidosis; K82.4 Cholesterolosis of gallbladder; I10 Essential (primary) hypertension; R00.1 Bradycardia, unspecified; R11.2 Nausea with vomiting, unspecified; R94.5 Abnormal results of liver function studies; E78.5 Hyperlipidemia, unspecified; F41.9 Anxiety disorder, unspecified; I95.9 Hypotension, unspecified; E87.1 Hypo-osmolality and hyponatremia; R19.7 Diarrhea, unspecified; I45.81 Long QT syndrome; F17.290 Nicotine dependence, other tobacco product, uncomplicated; K70.40 Alcoholic hepatic failure without coma
CPT/HCPCS: 70450; 71010; 71045; 76705; 80053; 80061; 80074; 80307; 81001; 82105; 82550; 82728; 82948; 82962; 83540; 83550; 83605; 83690; 84443; 84484; 84681; 85025; 85610; 85730; 87040; 87275; 87276; 87389; 87804; 90761; 90765; 90766; 90775; 93005; 96361; 96365; 96366; 96375; 96376; 99285; G0378; J1200; J2405; J2765; J7030; J7042